=== PATIENT | female | born 1995 | race African-American/Black ===

== ENCOUNTER 2020-01-16 07:35 | Inpatient (IN) | payer MEDICAID ==
[~2020-01-16] VITALS: Ht 170.2 cm; Wt 71.8 kg
[~2020-01-16 07:35] MED LIST: IBUPROFEN600 MG PO; PERCOCET 5-3251 TAB PO; PRENATAL COMPLE1 TAB PO
[2020-01-16 08:06] LABS: HEMATOCRIT 35.3 % (36.0-48.0); HEMOGLOBIN 11.6 g/dL (12-16); MCH 28.9 pg (26.0-34.0); MCHC 32.9 g/dL (31.0-37.0); MCV 87.8 fL (80.0-100.0); MEAN PLATELET VOLUME 10.4 fL (7.4-10.4); RBC 4.02 10x6/uL (4.00-5.40); WBC 10.3 10x3/uL (4.8-10.8)
[2020-01-16 08:12] LABS: UDS - AMPHET NEGATIVE QUAL (NEGATIVE); UDS - BARB NEGATIVE QUAL (NEGATIVE); UDS - BENZO NEGATIVE QUAL (NEGATIVE); UDS - COCAINE NEGATIVE QUAL (NEGATIVE); UDS - OPIATE NEGATIVE QUAL (NEGATIVE); UDS - PCP NEGATIVE QUAL (NEGATIVE); UDS - THC POSITIVE QUAL (NEGATIVE)
[2020-01-16 08:53] VITALS: BP 112/66; Ht 170.2 cm; Wt 71.8 kg
--- NOTE | 2020-01-16 19:20 | NUR ---
assessment completed, on fundal massage pt c/o cramping rates 10/10, 6cm clot passed, cytotec given pr per order, assisted up to br, voided 200ml, assisted w/ peterson care, dermablast applied and ice pack applied, returned to bed and instructed to not attempt to get up w/o assistance.
--- NOTE | 2020-01-16 19:35 | NUR ---
call to dr zaragoza, report given regarding assessment completed and noted 6cm clot expressed on fundal massage, fundus firm following, cytotec 1000mcg given per orders and pt c/o cramping orders rec'd for percocet 5 q 4 until am. noted and given
[2020-01-16 19:41] VITALS: BP 135/85
[2020-01-16 20:15] VITALS: BP 130/82
[2020-01-16 20:45] VITALS: BP 119/75
--- NOTE | 2020-01-16 20:47 | NUR ---
fundal massage, no new clots, lochia small. feeling relief from pain.
--- NOTE | 2020-01-16 21:19 | NUR ---
assisted up to br,steady gait, denies dizziness or light headedness, voided 200ml clear urinem, assisted w/ peterson care, ice pack applied, returned to bed. fundal check u/-2 firm midline and scant lochia
--- NOTE | 2020-01-16 22:47 | NUR ---
FUNDAL CHECK U/-2, FIRM, ML, LOCHIA SCANT, REINSTRUCTED PT ON TERRIE CARE STEPS INCLUDING ICE PACK, BETADINE WASH, AND MESH PANTIES, ACKNOWLEDGED UNDERSTANDING. NO NEEDS VOICED AT THIS TIME
--- NOTE | 2020-01-16 22:49 | NUR ---
ROOM CHECK, RESTING QUIETLY, RESPIRATIONS EVEN AND UNLABORED, IVF INFUSING VIA PUMP AT 125ML/HR VIA 20 G LAC. DID NOT DISTURB
--- NOTE | 2020-01-17 00:07 | NUR ---
in room boding w/ baby, sig other at bedside, pt holding , smiling, making eye contact. pitocin completed infusion, iv site to sl. no needs voiced
--- NOTE | 2020-01-17 01:29 | NUR ---
nurse at bedside, pt resting quietly in right lateral position, respirations even and unlabored, eyes closed, did not disturb
[2020-01-17 05:12] LABS: BASOPHILS 0.1 % (0-2); EOSINOPHILS 0.9 % (0-7); HEMATOCRIT 32.7 % (36.0-48.0); HEMOGLOBIN 10.5 g/dL (12-16); IMMATURE GRANULOCYTES 0.4 % (0-5); LYMPHOCYTES 18.6 % (15-50); MCH 28.5 pg (26.0-34.0); MCHC 32.1 g/dL (31.0-37.0); MCV 88.9 fL (80.0-100.0); MEAN PLATELET VOLUME 10.6 fL (7.4-10.4); MONOCYTES 10.4 % (2-11); NEUTROPHILS 69.6 % (40-80); PLATELET COUNT 239 10x3/uL (130-400); RBC 3.68 10x6/uL (4.00-5.40); RDW 13.4 % (11.5-14.5)
[2020-01-17 05:18] LABS: WBC 13.9 10x3/uL (4.8-10.8)
--- NOTE | 2020-01-17 05:58 | NUR ---
PT REQUESTING HEATING PAD, KPAD GIVEN FOR LOWER ABD CRAMPING, INSTRUCTED TO MAINTAIN ON LOWER ABD
[2020-01-17 07:10] LABS: RAPID PLASMA REAGIN Non Reactive (Non Reactive)
[2020-01-17 07:37] VITALS: BP 106/54
--- NOTE | 2020-01-17 07:37 | NUR ---
RECEIVED PT SITTING UP IN BED. AWAKE. AAO X 3. VSS. HRRR WITHOUT AUDIBLE MURMUR. BBS CLEAR. BS X 4. ABDOMEN SOFT/NON-DISTENDED. FUNDUS FIRM AT U/3. RUBRA LOCHIA SMALL AMT. PT DENIES PASSING CLOTS OR HEAVY BLEEDING. PERINEUM WITHOUT EDEMA NOTED. NEG HOMANS' SIGN. PPP. NO EDEMA NOTED TO BLE. SL TO LEFT FOREARM CLEAR. PT DENIES C/O OR NEEDS. KPAD TO ABDOMEN. PT STATES RELIEVING PAIN. SR UP X 2. CALL LIGHT IN REACH. PT PROVIDED MALINI SODA PER REQUEST.
--- NOTE | 2020-01-17 08:15 | NUR ---
PT SITTING UP IN BED. VISTS WITH SO. DENIES C/O OR NEEDS.
--- NOTE | 2020-01-17 09:45 | NUR ---
PT SITTING UP IN BED. VISITS WITH SO. DENIES PAIN OR NEEDS.
--- NOTE | 2020-01-17 11:00 | NUR ---
PT SITTING UP IN BED. CARING FOR INFANT. DENIES PAIN OR NEEDS.
[2020-01-17 12:52] VITALS: BP 122/63
--- NOTE | 2020-01-17 12:52 | NUR ---
PT SITTING UP IN BED. VSS. FUNDUS FIRM AT U/3. RUBRA LOCHIA SMALL AMT. PT DENIES HEAVY BLEEDING OR PASSING CLOTS. DENIES PAIN OR NEEDS. SR UP X2. CALL LIGHT IN REACH.
--- NOTE | 2020-01-17 14:00 | NUR ---
PT LYING TO RIGHT SIDE IN BED. EYES CLOSED. RESP NON-LABORED. PT NOT DISTURBED TO ALLOW FOR REST. SR UPX 2. CALL LIGHT IN REACH.
--- NOTE | 2020-01-17 15:10 | NUR ---
PT C/O ABDOMINAL CRAMPING OF "5" ON 0-10 PAIN SCALE. MOTRIN 600 MG GIVEN PO ORDERED. PT INSTRUCTED ON MED. VERBALIZES UNDERSTANDING.
--- NOTE | 2020-01-17 16:00 | NUR ---
PT SITTING UP IN BED. STATES "I FEEL GREAT". DENIES PAIN AT THIS TIME.
--- NOTE | 2020-01-17 17:45 | NUR ---
PT SITTING UP IN BED. HOLDS WITH MUCH WARMTH SHOWN. DENIES PAIN OR NEEDS. STATES WILL CALL WHEN READY TO SHOWER.
--- NOTE | 2020-01-17 18:55 | NUR ---
PT OOB AND AMB TO BR TO SHOWER. LINENS AND TOILETRIES PROVIDED. BED LINENS CHANGED.
--- NOTE | 2020-01-17 19:39 | NUR ---
PT OUT OF SHOWER, SITTING IN BED, GETTING READY TO EAT, INFORMED PT THAT I WILL BE BACK SHORTLY TO DO ASSESSMENT, PT VERBALIZES UNDERSTANDING, PT DENIES NEEDS OR PAIN AT THS TIME, FOB HOLDING
--- NOTE | 2020-01-17 20:25 | NUR ---
PT VISITING WITH FOB, INFORMED PT THAT SHE WILL BE TRANSFERRED TO [facility] SHORTLY, PT VERBALIZES UNDERSTANDING, DENIES NEEDS OR PAIN AT THIS TIME
--- NOTE | 2020-01-17 20:50 | NUR ---
GUILLERMO SANTO RN TRANSFERRED PT VIA AMB TO ROOM 1215
--- NOTE | 2020-01-17 21:15 | NUR ---
INFORMED PT THAT I WILL BE BACK SHORTLY TO DO ASSESSMENT, PT VERBALIZES UNDERSTANDING, REQUESTED AND SERVED LEMON [place] SODA, DENIES FURTHER NEEDS OR PAIN AT THIS TIME, FOB AT BEDSIDE HOLDING INFANT
[2020-01-17 22:20] VITALS: BP 104/69
--- NOTE | 2020-01-17 22:20 | NUR ---
ASSESSMENT PER FLOW SHEET, VS OBTAINED, SALINE LOCK IN RIGHT HAND INTACT WITH NO REDNESS OR EDEMA, FF, ML, U/2, PT REPORTS LIGHT BLEEDING WITH NO CLOTS, PT REPORTS FLATUS, SMALL BM TODAY AND VOIDING WITH NO DIFFICULTY, PT REQUESTED AND PROVIDED TERRIE PANTIES, BEDDING TO FOB, PT DENIES FURTHER NEEDS OR PAIN AT THIS TIME
--- NOTE | 2020-01-17 23:07 | NUR ---
INFANT TO NSY VIA OPEN CRIB CART PER LUPILLO TRIMBLE RN
--- NOTE | 2020-01-18 00:12 | NUR ---
PT RESTING WITH EYES CLOSED, RESP QUIET, NO DISTRESS NOTED, LEFT UNDISTURBED AT THIS TIME, FOB ASLEEP AT BEDSIDE
--- NOTE | 2020-01-18 02:17 | NUR ---
PT RESTING WITH EYES CLOSED, RESP QUIET, NO DISTRESS NOTED, LEFT UNDISTURBED AT THIS TIME, FOB ASLEEP AT BEDSIDE
--- NOTE | 2020-01-18 04:31 | NUR ---
PT RESTING WITH EYES CLOSED, RESP QUIET, NO DISTRESS NOTED, LEFT UNDISTURBED AT THIS TIME, FOB ASLEEP AT BEDSIDE
--- NOTE | 2020-01-18 06:16 | NUR ---
PT RESTING WITH EYES CLOSED, RESP QUIET, NO DISTRESS NOTED, LEFT UNDISTURBED AT THIS TIME, FOB ASLEEP AT BEDSIDE
--- NOTE | 2020-01-18 09:05 | NUR ---
DR. RAMSEY TO ROOM TO SPEAK WITH PT.
[2020-01-18 09:15] VITALS: BP 92/57
--- NOTE | 2020-01-18 09:15 | NUR ---
AM ASSESSMENT COMPETED. SEE FLOWSHEET. PT DENIES HEAVY BLEEDING OR PASSING CLOTS. SRUP X2, CALL LIGHT AND PHONE WITHIN REACH. PT REQUESTS MALINI PEARSON, NANCY. SEE EMAR FOR ALL MEDS ADM BY THIS RN. WILL PLAN FOR DISCHARGE THIS AM. DENIES ALL OTHER NEEDS. SR UP X 2, CALL LIGHT AND PHONE WITHIN REACH.
--- NOTE | 2020-01-18 09:30 | NUR ---
PT IS SITTING UP IN THE BED, TENDING TO . SIG OTHER AT BEDSIDE. PT SERVED LEMON [place] MALINI, AND ONE IBUPROFEN 600 MG PO GIVEN, SEE EMAR FOR ALL MEDS ADM BY THIS RN. PT DENIES ALL OTHER NEEDS AT THIS TIME.
--- NOTE | 2020-01-18 11:45 | NUR ---
DIETARY SERVES LUNCH TRAY. MALINI LEMON [id number] SERVED TO PT AT HER REQUEST. DENIES ALL OTHER NEEDS AT THIS TIME. SRUP X2, CALL LIGHT AND PHONE WITHIN REACH.
--- NOTE | 2020-01-18 12:30 | NUR ---
DISCHARGE INSTRUCTIONS EXPLAINED TO PT, PT PROVIDED WITH COPIES OF ALL DISCHARGE INSTRUCTIONS, PP INSTRUCTIONS, EMERGENCY/911 INFORMATION SHEET. PT ALSO PROVIDED WITH PERIPANTIES AND PADS FOR DISCHARGE. PT DENIES ALL OTHER QUESTIONS. AWAITING INFANT'S DISCHARGE. DR. SHORE IN [facility] AT THIS TIME. SRUP X2, CALL LIGHT AND PHONE WITHIN REACH.
--- NOTE | 2020-01-18 13:37 | NUR ---
CAREGIVER CHANGE REPORT GIVEN TO TAMARA SCHNEIDER RN OF PT'S DISCHARGE. AWAITING INFANT'S DISCHARGE.
== END 2020-01-18 13:30 | disposition home or self-care (01) | DRG 807 ==
LOC: D.LDO 07:35 → D.LD 07:47 → D.WS 01-17 20:20
PROVIDERS: ADMIT Student in an Organized Health Care Education/Training Program; ATTEND Student in an Organized Health Care Education/Training Program
PROC: 10E0XZZ Delivery of Products of Conception, External Approach (ICD-10-PCS; principal; 2020-01-16)
PROC: 0UQMXZZ Repair Vulva, External Approach (ICD-10-PCS; 2020-01-16)
DX: O60.14X0 Preterm labor third trimester with preterm delivery third trimester, not applicable or unspecified (principal); Z37.0 Single live birth; Z3A.36 36 weeks gestation of pregnancy; O70.0 First degree perineal laceration during delivery